=== PATIENT | female | born 1980 | race American Indian/Alaskan Native ===

== ENCOUNTER 2019-01-14 23:20 | Emergency (ER) | payer SELFPAY ==
--- NOTE | 2019-01-15 00:58 | XRay Report ---
RIGHT KNEE 4 VIEWS INDICATION / CLINICAL INFORMATION: Right knee pain. COMPARISON: None available. FINDINGS: No fracture, dislocation is seen within the right knee. A moderate right knee effusion is present. Ri ght knee MRI may be performed to assess for possible internal derangement as warranted clinically. Signer Name: Chris Mccracken MD Signed: 01/15/2019 12:54 AM Workstation Name: [id number]
[2019-01-15] MEDS ORDERED: IBUPROFEN PO ONE (02:29)
--- NOTE | 2019-01-15 02:30 | Emergency Department Report ---
ED Lower Extremity HPI - General Chief Complaint: Extremity Injury, Lower Stated Complaint: KNEE PAIN Time Seen by Provider: 01/15/19 02:26 Source: patient Mode of arrival: Ambulatory Limitations: No Limitations - History of Present Illness Initial Comments: 38-year-old -[place] female presents to the emergency room complaining of right knee pain 10 out of 10 since yesterday. Patient states she was running to catch the bus in the rain boots and fell on her knee. Patient reports since then she is having difficulty bearing weight walking. Patient reports that standing up is better than walking. Patient reports that she took some Advil. Complaint: knee injury (right) Onset/Timin -: days(s) Injury: Knee: Right Type of Injury: blunt Place: work Severity: severe Severity scale (0 -10): 10 Improves With: rest Worsens With: weight bearing Context: fall Associated Symptoms: swelling, unable to bear weight Treatments Prior to Arrival: NSAIDS - Related Data Previous Rx's Medication Instructions Recorded Last Taken Type Acetaminophen/Codeine [Tylenol 1 tab PO Q6H PRN #12 tab 01/15/19 Unknown Rx /Codeine # 3 tab] Ibuprofen [Motrin 800 MG tab] 800 mg PO Q8HR PRN #30 tablet 01/15/19 Unknown Rx Allergies Allergy/AdvReac Type Severity Reaction Status Date / Time No Known Allergies Allergy Unverified 01/14/19 23:32 ED Review of Systems ROS: Stated complaint: KNEE PAIN Other details as noted in HPI ED Past Medical Hx - Past Medical History Previous Medical History?: No - Surgical History Past Surgical History?: No - Social History Smoking Status: Current Some Day Smoker - Medications Home Medications: Home Medications Medication Instructions Recorded Confirmed Last Taken Type Acetaminophen/Codeine [Tylenol 1 tab PO Q6H PRN #12 tab 01/15/19 Unknown Rx /Codeine # 3 tab] Ibuprofen [Motrin 800 MG tab] 800 mg PO Q8HR PRN #30 tablet 01/15/19 Unknown Rx ED Physical Exam - General Limitations: No Limitations General appearance: alert, in no apparent distress - Head Head exam: Present: atraumatic, normocephalic - Eye Eye exam: Present: normal appearance - ENT ENT exam: Present: mucous membranes moist - Neck Neck exam: Present: normal inspection, full ROM - Expanded Lower Extremity Exam Right Knee exam: Present: tenderness, swelling, effusion, pain/laxity with valgus, full knee extension Lower Leg exam: Present: normal inspection, full ROM. Absent: tenderness Ankle exam: Present: normal inspection, full ROM. Absent: tenderness, swelling Foot/Toe exam: Present: normal inspection, full ROM. Absent: tenderness, swelling Neuro vascular tendon exam: Present: no vascular compromise - Back Exam Back exam: Present: normal inspection - Neurological Exam Neurological exam: Present: alert, oriented X3 - Psychiatric Psychiatric exam: Present: normal affect, normal mood - Skin Skin exam: Present: warm, dry, intact, normal color. Absent: rash ED Course Vital Signs 01/14/19 23:35 Temperature 98.3 F Pulse Rate 70 Respiratory 16 Rate Blood Pressure 155/88 O2 Sat by Pulse 97 Oximetry ED Lower Extremity MDM - Radiology Data Radiology results: report reviewed Patient: ROBERTO GRACIA MR#: [id number] : 1980 Acct:[id number] Age/Sex: 38 / F ADM Date: 01/14/19 Loc: ED Attending Dr: Ordering Physician: RENETTA MCKOY Date of Service: 01/14/19 Procedure(s): XR knee 3V RT Accession Number(s): [id number] cc: RENETTA MCKOY Fluoro Time In Minutes: RIGHT KNEE 4 VIEWS INDICATION / CLINICAL INFORMATION: Right knee pain. COMPARISON: None available. FINDINGS: No fracture, dislocation is seen within the right knee. A moderate right knee effusion is present. Right knee MRI may be performed to assess for possible internal derangement as warranted clinically. Signer Name: Chris Mccracken MD Signed: 01/15/2019 12:54 AM Workstation Name: [id number] Transcribed By: TL Dictated By: Chris Mccracken MD Electronically Authenticated By: Chris Mccracken MD Signed Date/Time: 01/15/1953 DD/ TD/TT: - Medical Decision Making 38-year-old -[place] female presents to the emergency room complaining of right knee pain 10 out of 10 since yesterday. Patient states she was running to catch the bus in the rain boots and fell on her knee. Patient reports since then she is having difficulty bearing weight walking. Patient reports that standing up is better than walking. Patient reports that she took some Advil. X-ray shows the patient has a moderate knee effusion. He recommended MRI for possible ligament damage. I discussed the patient that we'll refer her to orthopedic provider will place her in a knee immobilizer and crutches. Patient will be given a prescription for ibuprofen and Tylenol No. 3. Critical care attestation.: If time is entered above; I have spent that time in minutes in the direct care of this critically ill patient, excluding procedure time. ED Disposition Clinical Impression: Knee effusion, right Disposition: DC-01 TO HOME OR SELFCARE Is pt being admited?: No Does the pt Need Aspirin: No Condition: Stable Additional Instructions: Please take pain medication as prescribed. Please wear your knee immobilizer and use her crutches to help ambulate. It is very important for you to follow up with orthopedic provider I have listed several below for your convenience. Prescriptions: Ibuprofen [Motrin 800 MG tab] 800 mg PO Q8HR PRN #30 tablet PRN Reason: Pain , Severe (7-10) Acetaminophen/Codeine [Tylenol /Codeine # 3 tab] 1 tab PO Q6H PRN #12 tab PRN Reason: Pain , Severe (7-10) Referrals: PRIMARY CAREMD [Primary Care Provider] - 3-5 Days NELLIE CHAMBERLAIN MD [Staff Physician] - 3-5 Days [facility] [Provider Group] - 3-5 Days Forms: Work/School Release Form(ED)
[2019-01-15 05:04] VITALS: BP 160/87
== END 2019-01-15 04:00 | disposition home or self-care (01) ==
LOC: ED 23:20
DX: M25.461 Effusion, right knee (principal); F17.200 Nicotine dependence, unspecified, uncomplicated; Z79.899 Other long term (current) drug therapy; W01.198A Fall on same level from slipping, tripping and stumbling with subsequent striking against other object, initial encounter; Y93.02 Activity, running; Y92.811 Bus as the place of occurrence of the external cause; Y99.8 Other external cause status